=== PATIENT | male | born 1995 | race Caucasian/White ===

== ENCOUNTER 2017-07-25 11:53 | Emergency (ER) | payer BC ==
[~2017-07-25] VITALS: Ht 177.8 cm; Wt 85.0 kg
[2017-07-25 11:58] VITALS: TEMP 36.4; Ht 177.8 cm; Wt 85.0 kg
--- NOTE | 2017-07-25 12:28 | DIAGNOSTIC IMAGING REPORT ---
RIGHT HAND 3 VIEWS CLINICAL HISTORY: Right hand pain and injury. FINDINGS: 3 views of the right hand are obtained. No prior studies are available for comparison at the time of dictation. The skeletal structures are well mineralized. No fracture is seen. The joint spaces are well-maintained. Significant dorsal soft tissue edema is identified. IMPRESSION: Dorsal soft tissue swelling with no radiographic evidence of fracture. If there is strong clinical concern for occult fracture consider short-term radiographic follow-up. Electronically signed by: Jose Leger M.D. 07/25/2017 12:26 PM Dictated Date/Time: 07/25/2017 12:25 PM
--- NOTE | 2017-07-25 12:47 | EMERGENCY ROOM VISIT NOTE ---
ED Visit Note First contact with patient: 12:02 CHIEF COMPLAINT: Right hand injury last evening HISTORY OF PRESENT ILLNESS: Patient is a [id number] 21-year-old white male who presents the emergency department for evaluation of right hand pain after he punched something last evening. He admits that he was intoxicated at the time, and is unsure whether he punched a door or a wall. He complains of pain and swelling in the dorsum of his hand, particularly in the third and fourth metacarpals. He took some ibuprofen last evening. The pain is constant, moderate, and worse with any movement of the hand. He rates his discomfort a 7/ 10. REVIEW OF SYSTEMS: Review of systems as per HPI. All other systems reviewed were negative. At least 6 systems reviewed. PMH: Electronic medical records are reviewed and summarized as above/below. See Problem List. SOCIAL HISTORY: Patient is a [employer] student from the [employer]. He does not smoke. PHYSICAL EXAM: Vital Signs: Reviewed Nurse's notes. CONSTITUTIONAL: Patient is a well-appearing 21-year-old white male who is awake and alert and in no acute distress. MUSCULOSKELETAL: Examination of the right hand note swelling and erythema in the dorsum of the hands, primarily centered over the third metacarpal, extending towards the second and fourth metacarpal as well. He has superficial scratches noted over the third metacarpal head. He is tenderness to palpation over the dorsum of the hand, particularly over the third metacarpal, no obvious deformity or fracture crepitus is appreciated. Hand is neurovascularly intact. EMERGENCY DEPARTMENT COURSE: X-rays of the right hand were obtained, and negative for acute fracture. Patient was prepped with an Vasiliy wrap. He was given an ice pack. Conservative care measures were discussed. Differential diagnosis includes fracture, contusion, dislocation, abrasion, among others. Medication reconciliation: I attest that I have personally reviewed the patient' s current medication list. Blood pressure screening : Patient was found to have normal blood pressure on screening and does not require follow-up. RIGHT HAND 3 VIEWS CLINICAL HISTORY: Right hand pain and injury. FINDINGS: 3 views of the right hand are obtained. No prior studies are available for comparison at the time of dictation. The skeletal structures are well mineralized. No fracture is seen. The joint spaces are well-maintained. Significant dorsal soft tissue edema is identified. IMPRESSION: Dorsal soft tissue swelling with no radiographic evidence of fracture. If there is strong clinical concern for occult fracture consider short-term radiographic follow-up. Problem List Medical Problems: (1) Psoriasis Status: Chronic Current/Historical Medications No Active Prescriptions or Reported Meds Allergies Coded Allergies: No Known Allergies (Unverified , 07/25/17) Vital Signs Date Time Temp Pulse Resp B/P (MAP) Pulse Ox O2 Delivery O2 Flow Rate FiO2 07/25/17 12:59 75 18 105/54 95 07/25/17 11:58 36.4 76 18 122/75 95 Departure Information Impression Primary Impression: Contusion of right hand Prescriptions No Active Prescriptions or Reported Meds Referrals No Doctor, Assigned (PCP) Patient Instructions [facility] Additional Instructions Ibuprofen(Motrin, Advil) may be used for fever or pain. Use 600mg every six hours as needed. Take with food. Avoid using more than 2400mg in a 24 hour period. Do not use 2400mg per day for more than three consecutive days without physician direction. Prolonged inappropriate use can lead to stomach upset or ulcers. This medication can be taken if you need to drive, work, or perform activities which may be dangerous when taking narcotic pain medication. (AND/OR) Acetaminophen(Tylenol) may be used for fever or pain. Use 1000mg every six hours as needed. Avoid using more than 3000mg in a 24 hour period. This medication can be taken if you need to drive, work, or perform activities which may be dangerous when taking narcotic pain medication. Ice compresses for 20 minutes at a time four times daily for 2-3 days. Use Vasiliy wrap as instructed. Rest and elevate your injury. May return to normal activity as your symptoms allow. Continue current medications. Return to the ER immediately for any numbness, tingling, severe pain, extreme swelling in the extremity or as needed. Followup with your family doctor or orthopedic surgery if no improvement in 5-7 days.
[2017-07-25 12:59] VITALS: BP 105/54; PULSE 75; O2SAT 95
== END 2017-07-25 12:59 | disposition home or self-care (01) ==
LOC: C.EDB 11:56 → C.EDD 12:59
DX: S60.221A Contusion of right hand, initial encounter (principal); S60.412A Abrasion of right middle finger, initial encounter; W22.8XXA Striking against or struck by other objects, initial encounter